=== PATIENT | female | born 1990 | race Caucasian/White ===

== ENCOUNTER 2018-08-14 15:19 | Emergency (ER) | payer SELFPAY ==
[~2018-08-14] VITALS: Ht 162.6 cm; Wt 81.0 kg
[2018-08-14] MEDS ORDERED: METOPROLOL (15:53)
[2018-08-14 16:30] VITALS: BP 118/68
== END 2018-08-14 18:48 | disposition home or self-care (01) ==
LOC: ER 16:07
DX: Z48.00 Encounter for change or removal of nonsurgical wound dressing (principal); Z98.890 Other specified postprocedural states
CPT/HCPCS: 81025; 93005; 99283

== ENCOUNTER 2018-08-15 12:17 | Emergency (ER) | payer MEDICAID ==
[~2018-08-15] VITALS: Ht 162.6 cm; Wt 80.9 kg
[~2018-08-15 12:17] MED LIST: METOPROLOL
[2018-08-15] MEDS ORDERED: ACETAMINOPHEN 325MG TABLET PO ONE (14:30)
[2018-08-15 14:31] LABS: CLARITY URINE CLEAR (CLEAR); COLOR URINE YELLOW (YELLOW); KETONES URINE NEGATIVE (NEGATIVE); LEUKOCYTE ESTERASE URINE NEGATIVE (NEGATIVE); NITRITE URINE NEGATIVE (NEGATIVE); OCCULT BLOOD URINE NEGATIVE (NEGATIVE); PH URINE >=9.0 (4.5-8.0); PROTEIN URINE NEGATIVE (NEGATIVE); SPECIFIC GRAVITY URINE 1.017 (1.005-1.030); UROBILINOGEN URINE 0.2 E.U./dL (0.2-1.0)
[2018-08-15 16:55] VITALS: BP 104/66
== END 2018-08-15 16:58 | disposition home or self-care (01) ==
LOC: ER 14:37
DX: R51 Headache (principal); I48.91 Unspecified atrial fibrillation; I49.9 Cardiac arrhythmia, unspecified; Z98.890 Other specified postprocedural states
CPT/HCPCS: 81025; 99284

== ENCOUNTER 2021-09-07 18:29 | Emergency (ER) | payer MEDICAID, MEDICARE ==
[~2021-09-07] VITALS: Ht 162.6 cm; Wt 82.0 kg
[2021-09-07 18:37] VITALS: BP 126/88
[2021-09-07] MEDS ORDERED: ONDANSETRON 4MG ODT PO ONE (21:30)
[2021-09-07 21:58] LABS: BASOPHILS % 0.3 % (0.0-2.0); CHLORIDE 106 mEq/L (98-107); EOSINOPHILS % 0.4 % (0.0-5.0); HEMATOCRIT. 40.9 % (36.0-48.0); HEMOGLOBIN. 13.6 g/dL (12.0-16.0); LYMPHOCYTES % 14.5 % (20.0-50.0); MEAN CORPUSCULAR HEMOGLOBIN 29.5 pg (28.0-32.0); MEAN CORPUSCULAR VOLUME 88.6 fL (81.0-99.0); MEAN PLATELET VOLUME 8.6 fl (7.4-10.4); MONOCYTES % 2.7 % (2.0-8.0); NEUTROPHILS % 82.1 % (40.0-76.0); PLATELET 326 x1000/uL (130-400); RED BLOOD CELL COUNT 4.62 mill/uL (4.2-5.4); RED CELL DISTRIBUTION WIDTH 14.2 % (11.6-14.6)
[2021-09-07] MEDS ORDERED: CLOT15CR27 TP (22:55)
== END 2021-09-07 23:14 | disposition home or self-care (01) ==
LOC: ER 18:42
DX: B49 Unspecified mycosis (principal); F43.0 Acute stress reaction; I48.91 Unspecified atrial fibrillation; I49.9 Cardiac arrhythmia, unspecified; Z98.890 Other specified postprocedural states
CPT/HCPCS: 36415; 80053; 81025; 83690; 84484; 85025; 93005; 99284; Q0162

== ENCOUNTER 2024-02-25 10:05 | Emergency (ER) | payer MEDICAID ==
[~2024-02-25] VITALS: Ht 162.6 cm; Wt 74.0 kg
[~2024-02-25 10:05] MED LIST changes: +CLOT15CR27 TP
[2024-02-25 10:07] VITALS: BP 156/94; PULSE 114; RESP 18; O2SAT 100; O2SAT 99
[2024-02-25 12:20] VITALS: TEMP 98.5
[2024-02-25] MEDS: ACETAMINOPHEN 325MG TABLET PO ONE (12:20)
[2024-02-25] MEDS ORDERED: AMOX1TAB16 MT (14:55)
== END 2024-02-25 15:09 | disposition home or self-care (01) ==
LOC: ER 10:16
DX: H60.93 Unspecified otitis externa, bilateral (principal); I48.91 Unspecified atrial fibrillation; J45.909 Unspecified asthma, uncomplicated; Z98.890 Other specified postprocedural states
CPT/HCPCS: 99283